=== PATIENT | female | born 1990 | race American Indian/Alaskan Native ===

== ENCOUNTER 2021-05-02 12:33 | Emergency (ER) | payer OTHER ==
[2021-05-02] MEDS ORDERED: MORPHINE 2 MG/1 ML INJ IV ONE (13:22)
[2021-05-02] MEDS ORDERED: METOCLOPRAMIDE 10 MG/2 ML INJ IV ONE (13:22)
[2021-05-02] MEDS ORDERED: SODIUM CHLORIDE 0.9% 500 ML 500 ML IV ONE (13:23)
--- NOTE | 2021-05-02 13:25 | Emergency Department Report ---
HPI - General Chief Complaint: Headache Time Seen by Provider: 05/02/21 13:16 - HPI HPI: 30-year-old -[place] female presents to the emergency department with complaint of a 4-day history of a left-sided headache that wraps around from the back of her head, to the front and goes behind the eye. She says that she has had some intermittent blurry vision but denies any at the time of my initial examination. She rates his headache at 6 out of 10 in intensity. She tried some ibuprofen without any relief. Therefore there are no known aggravating or alleviating factors. Patient does not have any diagnosed history of recurrent headaches but admits to having headaches in the past that were responsive to ibuprofen. Otherwise she denies any past medical history. No recent travel or sick contacts at home. She denies any slurred speech, numbness or paresthesias, facial asymmetry, focal or localized weakness. ED Past Medical Hx - Past Medical History Previous Medical History?: No - Social History Smoking Status: Never Smoker Substance Use Type: None - Medications Home Medications: Home Medications Medication Instructions Recorded Confirmed Last Taken Type No Known Home Medications [No 05/02/21 05/02/21 Unknown History Reported Home Medications] ED Review of Systems ROS: Stated complaint: HEADACHE Other details as noted in HPI Comment: All other systems reviewed and negative Constitutional: denies: chills, fever Eyes: vision change (Intermittent blurred vision, none currently). denies: eye pain ENT: denies: ear pain, throat pain Respiratory: denies: cough, shortness of breath Cardiovascular: denies: chest pain, palpitations Gastrointestinal: denies: abdominal pain, vomiting Genitourinary: denies: dysuria, discharge Musculoskeletal: denies: back pain, arthralgia Skin: denies: rash, lesions Neurological: headache. denies: weakness, numbness, paresthesias, confusion Physical Exam - Physical Exam Vital Signs: Vital Signs 05/02/21 05/02/21 13:07 13:15 Temperature 98.4 F Pulse Rate 72 Respiratory 12 18 Rate Blood Pressure 110/71 Blood Pressure 110/72 [Right] O2 Sat by Pulse 100 97 Oximetry Physical Exam: GENERAL: The patient is well-developed well-nourished. HENT: Normocephalic. Atraumatic. Patient has moist mucous membranes. EYES: Extraocular motions are intact. No nystagmus. NECK: Supple. Trachea is midline. CHEST/LUNGS: Clear to auscultation. There is no respiratory distress noted. HEART/CARDIOVASCULAR: Regular. There is no tachycardia. There is no murmur. ABDOMEN: Abdomen is soft, nontender. Patient has normal bowel sounds. SKIN: Skin is warm and dry. NEURO: The patient is awake, alert, and oriented. The patient is cooperative. The patient has no focal neurologic deficits. Normal speech. Cranial nerves II through XII grossly intact. No facial asymmetry. No pronator drift. MUSCULOSKELETAL: There is no tenderness or deformity. There is no limitation range of motion. ED Course Vital Signs 05/02/21 05/02/21 13:07 13:15 Temperature 98.4 F Pulse Rate 72 Respiratory 12 18 Rate Blood Pressure 110/71 Blood Pressure 110/72 [Right] O2 Sat by Pulse 100 97 Oximetry ED Medical Decision Making - Lab Data Result diagrams: 05/02/21 13:45 05/02/21 13:45 Lab Results 05/02/21 05/02/21 Range/Units 13:45 13:45 WBC 3.4 L (4.5-11.0) K/mm3 RBC 4.07 (3.65-5.03) M/mm3 Hgb 11.9 (10.1-14.3) gm/dl Hct 37.3 (30.3-42.9) % MCV 92 (79-97) fl MCH 29 (28-32) pg MCHC 32 (30-34) % RDW 13.3 (13.2-15.2) % Plt Count 205 (140-440) K/mm3 Lymph % (Auto) 38.4 H (13.4-35.0) % [place] % (Auto) 12.4 H (0.0-7.3) % Eos % (Auto) 1.6 (0.0-4.3) % Baso % (Auto) 0.6 (0.0-1.8) % Lymph # (Auto) 1.3 (1.2-5.4) K/mm3 [place] # (Auto) 0.4 (0.0-0.8) K/mm3 Eos # (Auto) 0.1 (0.0-0.4) K/mm3 Baso # (Auto) 0.0 (0.0-0.1) K/mm3 Seg Neutrophils % 47.0 (40.0-70.0) % Seg Neutrophils # 1.6 L (1.8-7.7) K/mm3 Sodium 140 (137-145) mmol/L Potassium 3.9 (3.6-5.0) mmol/L Chloride 104.5 (98-107) mmol/L Carbon Dioxide 22 (22-30) mmol/L Anion Gap 17 mmol/L BUN 15 (7-17) mg/dL Creatinine 0.6 (0.6-1.2) mg/dL Estimated GFR > 60 ml/min BUN/Creatinine Ratio 25 % Glucose 91 (65-100) mg/dL Calcium 8.8 (8.4-10.2) mg/dL - Radiology Data Radiology results: report reviewed CT head/brain wo con INDICATION / CLINICAL INFORMATION: 30 years Female; 4 days of headache, intermittent blurred vision. TECHNIQUE: Routine CT head without contrast. All CT scans at this location are performed using CT dose reduction for ALARA by means of automated exposure control. COMPARISON: None. FINDINGS: BRAIN / INTRACRANIAL CONTENTS: The brain appears to demonstrate appropriate attenuation. The ventricular system is within normal limits in size and configuration. There is no CT evidence of acute intracranial hemorrhage or significant mass effect. ORBITS: No significant abnormality of visualized orbits. SINUSES / MASTOIDS: No significant abnormality in the visualized paranasal sinuses or mastoid air cells. CRANIOCERVICAL JUNCTION: No significant abnormality. ADDITIONAL FINDINGS: None. IMPRESSION: 1. There is no CT evidence of acute intracranial process. - Medical Decision Making This patient presents with a 4-day history of a left-sided headache. She also complained of having some previous blurry vision that has since resolved. On examination she does not have any focal, motor or sensory deficits and her cranial nerves are intact. The patient has an NIH stroke scale of 0. Vital signs reassuring including being afebrile. The patient has no neck pain or meningismus signs. CT of the head without contrast does not show any hemorrhage, large vessel occlusion, or any other acute process. Labs have been unremarkable including CBC and metabolic panel. Patient was given some IV fluid resuscitation, Reglan, and a dose of IV analgesia. Upon reevaluation the patient says she is feeling greatly improved. For all these reason she appears safe for discharge home at this time. She has been instructed to follow-up with primary care and has been given outpatient referral for neurology. Critical Care Time: No Critical care attestation.: If time is entered above; I have spent that time in minutes in the direct care of this critically ill patient, excluding procedure time. ED Disposition Clinical Impression: Headache Qualifiers: Headache type: unspecified Headache chronicity pattern: unspecified pattern Intractability: not intractable Qualified Code(s): R51.9 - Headache, unspecified Disposition: 01 HOME / SELF CARE / HOMELESS Is pt being admited?: No Condition: Stable Instructions: General Headache Without Cause Additional Instructions: Please follow-up with your primary care physician in the next few days. I have given you a referral for a local neurologist, Dr. Del Toro, to follow-up regarding your headaches. Return to the emergency department with any worsening of your symptoms, new or concerning symptoms not addressed during this current emergency department visit, or with any acute distress. Referrals: JUAN MEJIA MD [Primary Care Provider] - 3-5 Days SHABBIR DEL TORO MD [Referring] - 3-5 Days Time of Disposition: 14:56
[2021-05-02 14:01] VITALS: BP 117/73
--- NOTE | 2021-05-02 14:11 | Cat Scan Report ---
CT head/brain wo con INDICATION / CLINICAL INFORMATION: 30 years Female; 4 days of headache, intermittent blurred vision. TECHNIQUE: Routine CT head without contrast. All CT scans at this location are performed using CT dos e reduction for ALARA by means of automated exposure control. COMPARISON: None. FINDINGS: BRAIN / INTRACRANIAL CONTENTS: The brain appears to demonstrate appropriate attenuation. The ventricu lar system is within normal limits in size and configuration. There is no CT evidence of acute intrac ranial hemorrhage or significant mass effect. ORBITS: No significant abnormality of visualized orbits. SINUSES / MASTOIDS: No significant abnormality in the visualized paranasal sinuses or mastoid air janette ls. CRANIOCERVICAL JUNCTION: No significant abnormality. ADDITIONAL FINDINGS: None. IMPRESSION: 1. There is no CT evidence of acute intracranial process. Signer Name: Alphonso Tariq MD Signed: 05/02/2021 2:07 PM Workstation Name: [id number]
[2021-05-02 14:19] LABS: Basophils % (Auto) 0.6 % (0.0-1.8); Eosinophils # (Auto) 0.1 K/mm3 (0.0-0.4); Eosinophils % (Auto) 1.6 % (0.0-4.3); Hematocrit 37.3 % (30.3-42.9); Hemoglobin 11.9 gm/dl (10.1-14.3); Lymphocytes # (Auto) 1.3 K/mm3 (1.2-5.4); Lymphocytes % (Auto) 38.4 % (13.4-35.0); Mean Corpuscular HGB Conc 32 % (30-34); Mean Corpuscular Volume 92 fl (79-97); Monocytes # (Auto) 0.4 K/mm3 (0.0-0.8); Monocytes % (Auto) 12.4 % (0.0-7.3); Platelet Count 205 K/mm3 (140-440); Red Blood Count 4.07 M/mm3 (3.65-5.03); Red Cell Distribution Width 13.3 % (13.2-15.2)
[2021-05-02 14:26] LABS: Blood Urea Nitrogen 15 mg/dL (7-17); Calcium 8.8 mg/dL (8.4-10.2); Hemolysis Index 3
[2021-05-02 14:29] LABS: BUN/Creatinine Ratio 25
== END 2021-05-02 15:08 | disposition home or self-care (01) ==
LOC: EDBD → ED 12:33
DX: R51.9 Headache, unspecified (principal)
CPT/HCPCS: 36415; 70450; 80048; 85025; 96374; 96375; 99284; J2270; J2765; J7040

== ENCOUNTER 2021-06-03 11:21 | Emergency (ER) | payer OTHER ==
[2021-06-03] MEDS ORDERED: ACETAMINOPHEN 500 MG TAB PO ONE (12:09)
--- NOTE | 2021-06-03 12:11 | Emergency Department Report ---
ED Fever HPI - General Chief Complaint: Fever Stated Complaint: HYPOTENSIVE Time Seen by Provider: 06/03/21 12:07 - History of Present Illness Initial Comments: Patient presents from the neurologist office due to headache, low blood pressure, and generalized malaise. She was over there for headaches. She has been having headaches for months. She states that she was told to come here because her blood pressure was low in the 80s and her temperature was 104. Patient has complaints regarding cough and congestion. She did a home test at earlier that suggested she had coronavirus. She has had no known coronavirus exposure. Patient has no dysuria or frequency. There is no vomiting or diarrhea. She has had some cough and congestion. She states that she just has malaise. ED Review of Systems ROS: Stated complaint: HYPOTENSIVE Other details as noted in HPI Comment: All other systems reviewed and negative Constitutional: fever Eyes: denies: eye pain ENT: denies: throat pain Respiratory: denies: shortness of breath Cardiovascular: denies: chest pain Endocrine: denies: unexplained weight loss Gastrointestinal: denies: abdominal pain Genitourinary: denies: dysuria Musculoskeletal: denies: back pain Skin: denies: rash Neurological: as per HPI, headache Hematological/Lymphatic: denies: easy bruising ED Past Medical Hx - Past Medical History Additional medical history: Chronic headache - Family History Family history: no significant - Social History Smoking Status: Never Smoker Substance Use Type: None - Medications Home Medications: Home Medications Medication Instructions Recorded Confirmed Last Taken Type No Known Home Medications [No 05/02/21 05/02/21 Unknown History Reported Home Medications] ED Physical Exam - General Limitations: No Limitations, Other ( pulse ox noted and normal) General appearance: alert, in no apparent distress - Head Head exam: Present: atraumatic, normocephalic - Eye Eye exam: Present: normal appearance, EOMI - ENT ENT exam: Present: normal orophraynx, normal external ear exam - Neck Neck exam: Present: normal inspection. Absent: meningismus - Respiratory Respiratory exam: Present: normal lung sounds bilaterally. Absent: respiratory distress - Cardiovascular Cardiovascular Exam: Present: normal rhythm, tachycardia - GI/Abdominal GI/Abdominal exam: Present: soft. Absent: tenderness - Extremities Exam Extremities exam: Present: normal capillary refill - Back Exam Back exam: Absent: CVA tenderness (R), CVA tenderness (L) - Neurological Exam Neurological exam: Present: alert, oriented X3, CN II-XII intact, normal gait - Psychiatric Psychiatric exam: Present: normal affect, normal mood - Skin Skin exam: Present: warm, dry ED Course Vital Signs 06/03/21 12:01 Temperature 101.6 F H Pulse Rate 108 H Respiratory 14 Rate Blood Pressure 110/62 [Right] O2 Sat by Pulse 98 Oximetry - Reevaluation(s) Reevaluation #1: 06/03/21 12:08 Tylenol ordered Reevaluation #2: 06/03/21 14:22 flu was negative ED Medical Decision Making - Medical Decision Making Patient was referred here secondary to reports of a low blood pressure and fever. She does have a fever but she is not hypotensive. Likely, the cuff that was used was too large. The patient points to a much larger cuff that was used when they checked her blood pressure in the clinic. At this time, patient does have symptoms that are consistent with a viral illness. We are not doing Covid testing here. There is no indication that the patient would decompensate from coronavirus. She does not have influenza. She does not appear to be septic or toxic. She can follow-up for outpatient Covid testing. We have discussed isolation at home. I do believe this is a viral illness and very likely Covid. Critical Care Time: No Critical care attestation.: If time is entered above; I have spent that time in minutes in the direct care of this critically ill patient, excluding procedure time. ED Disposition Clinical Impression: Acute febrile illness, Suspected COVID-19 virus infection Disposition: HOME / SELF CARE / HOMELESS Is pt being admited?: No Condition: Stable Instructions: Fever, Adult Additional Instructions: Push fluids. Alternate Tylenol and ibuprofen for fever. Isolate at home. Return for problems or concerns. Follow-up with your regular doctor for recheck. Referrals: PRIMARY CARE, [Referring] - 3-5 Days
[2021-06-03 14:25] VITALS: BP 133/73
== END 2021-06-03 14:25 | disposition home or self-care (01) ==
LOC: ED 11:21
DX: R50.9 Fever, unspecified (principal); R51.9 Headache, unspecified; R53.81 Other malaise; Z20.822 Contact with and (suspected) exposure to COVID-19
CPT/HCPCS: 87400; 99283

== ENCOUNTER 2021-11-30 10:02 | Emergency (ER) | payer SELFPAY ==
[2021-11-30 10:14] VITALS: BP 126/74
--- NOTE | 2021-11-30 10:44 | XRay Report ---
CHEST 2 VIEWS INDICATION / CLINICAL INFORMATION: chest pain. COMPARISON: None available. FINDINGS: SUPPORT DEVICES: None. HEART / MEDIASTINUM: No significant abnormality. LUNGS / PLEURA: No significant pulmonary or pleural abnormality. No pneumothorax. ADDITIONAL FINDINGS: No significant additional findings. IMPRESSION: 1. No acute findings. Signer Name: Rene Fan MD Signed: 11/30/2021 10:40 AM Workstation Name: [id number]
[2021-11-30 11:11] LABS: Basophils # (Auto) 0.1 K/mm3 (0.0-0.1); Basophils % (Auto) 1.1 % (0.0-1.8); Eosinophils # (Auto) 0.1 K/mm3 (0.0-0.4); Eosinophils % (Auto) 1.9 % (0.0-4.3); Hematocrit 37.7 % (30.3-42.9); Hemoglobin 12.6 gm/dl (10.1-14.3); Lymphocytes # (Auto) 1.7 K/mm3 (1.2-5.4); Lymphocytes % (Auto) 34.2 % (13.4-35.0); Mean Corpuscular HGB Conc 33 % (30-34); Mean Corpuscular Volume 92 fl (79-97); Monocytes # (Auto) 0.6 K/mm3 (0.0-0.8); Monocytes % (Auto) 11.8 % (0.0-7.3); Platelet Count 236 K/mm3 (140-440); Red Blood Count 4.11 M/mm3 (3.65-5.03); Red Cell Distribution Width 13.5 % (13.2-15.2)
[2021-11-30 11:33] LABS: Alanine Aminotransferase 12 units/L (7-56); Albumin 4.7 g/dL (3.9-5); Blood Urea Nitrogen 14 mg/dL (7-17); Calcium 9.1 mg/dL (8.4-10.2); Hemolysis Index 5
[2021-11-30 11:36] LABS: BUN/Creatinine Ratio 20
--- NOTE | 2021-12-01 09:32 | Electrocardiograph Report ---
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
== END 2021-12-01 08:23 | disposition left against medical advice (07) ==
LOC: ED 10:02
DX: R07.9 Chest pain, unspecified (principal); R20.0 Anesthesia of skin; Z53.21 Procedure and treatment not carried out due to patient leaving prior to being seen by health care provider
CPT/HCPCS: 36415; 71046; 80053; 85025; 93005